=== PATIENT | male | born 2000 | race Caucasian/White ===

== ENCOUNTER 2021-06-28 10:26 | Emergency (ER) | payer OTHER ==
[2021-06-28] MEDS: Ketorolac 60 MG/2 ML SDV IM ONE (10:53)
[2021-06-28] MEDS: Ketorolac 60 MG/2 ML SDV ONE (10:54)
[2021-06-28] MEDS ORDERED: Ketorolac 10 MG Tab ONE (11:00)
[2021-06-28] MEDS ORDERED: traMADol 50 MG Tab ONE (11:00)
--- NOTE | 2021-06-28 11:25 | EDM.PDOC ---
ED HPI GENERAL MEDICAL PROBLEM - General Chief Complaint: Gastrointestinal Problem Stated Complaint: 2 HERNIAS IN ABDOMEN Time Seen by Provider: 06/28/21 11:02 Source of Information: Reports: Patient History Limitations: Reports: No Limitations - History of Present Illness INITIAL COMMENTS - FREE TEXT/NARRATIVE: patient presented to the ER with a c/o umbilical pain. known chau-umbilical hernia - was diagnosed last week at OSH using a CT scan - also has a scheduled appointment to see the surgeon in 3 days. He was on Hydrocodone 10mg/Tylenol 325mg PO, reports he ran out of them and needs something different for pain. He admits that Ibuprofen helps more with pain. No nausea or emesis. Good PO intake, had a breakfast today. No changes in BMs. No fever or chills. Pain is not worse than before, and denies any skin changes. Onset: Gradual Duration: Day(s): (5) Location: Reports: Abdomen Severity: Mild Upper Abdomen Pain Score (Numeric/FACES): 7 - Related Data Allergies Allergy/AdvReac Type Severity Reaction Status Date / Time No Known Allergies Allergy Verified 06/28/21 10:43 Past Medical History Musculoskeletal History: Reports: Other (See Below) Other Musculoskeletal History: miniscus tear. - Past Surgical History HEENT Surgical History: Reports: Other (See Below) Other HEENT Surgeries/Procedures: wisdom teeth removal GI Surgical History: Reports: Hernia, Abdominal Social & Family History - Recreational Drug Use Recreational Drug Use: No ED ROS GENERAL - Review of Systems Review Of Systems: See Below Constitutional: Reports: No Symptoms HEENT: Reports: No Symptoms Respiratory: Reports: No Symptoms Cardiovascular: Reports: No Symptoms GI/Abdominal: Reports: Abdominal Pain. Denies: Constipation, Distension, Nausea, Vomiting Musculoskeletal: Reports: No Symptoms Neurological: Reports: No Symptoms Psychiatric: Reports: No Symptoms ED EXAM, GI/ABD - Physical Exam Exam: See Below Exam Limited By: No Limitations General Appearance: Alert, WD/WN, No Apparent Distress Respiratory/Chest: No Respiratory Distress Cardiovascular: Normal Peripheral Pulses GI/Abdominal Exam: Soft, No Organomegaly, No Distention, Tender (mild tenderness over the umbilical hernia area - couldn't do any hernia reduction manually. no skin changes surrounding the area) Course - Vital Signs Last Recorded V/S: Last Vital Signs Temp 37.1 C 09/25/21 10:44 Pulse 65 06/28/21 10:44 Resp 18 06/28/21 10:44 BP 128/85 06/28/21 10:44 Pulse Ox 99 06/28/21 10:44 - Orders/Labs/Meds Orders: Active Orders 24 hr Category Date Time Status Lidocaine 5% Med 06/28/21 11:28 Once 5 gm TOP ONETIME ONE Meds: Medications Discontinued Medications Generic Name Dose Route Start Last Admin Trade Name Gianni PRN Reason Stop Dose Admin Ketorolac Tromethamine 60 mg 06/28/21 10:50 06/28/21 10:53 Ketorolac 60 Mg/2 Ml Sdv IM 06/28/21 10:51 60 mg ONETIME ONE Administration Ketorolac Tromethamine Confirm 06/28/21 11:02 06/28/21 10:54 Ketorolac 60 Mg/2 Ml Sdv Administered 06/28/21 11:03 Not Given Dose 60 mg .ROUTE .STK-MED ONE - Re-Assessments/Exams Free Text/Narrative Re-Assessment/Exam: vitals WNL Im Toradol was given - reports his pain has went down. will be d/cd home on Tramadol and Toradol PO. Lidocaine patch was applied over his hernia area. Departure - Departure Time of Disposition: 11:34 Disposition: Home, Self-Care 01 Condition: Good Clinical Impression: Abdominal pain, Umbilical hernia without obstruction and without gangrene - Discharge Information *PRESCRIPTION DRUG MONITORING PROGRAM REVIEWED*: Not Applicable *COPY OF PRESCRIPTION DRUG MONITORING REPORT IN PATIENT BEN: Not Applicable Instructions: Umbilical Hernia, Adult Referrals: PCP,None [Primary Care Provider] - Forms: ED Department Discharge Sepsis Event Note (ED) - Evaluation Sepsis Screening Result: No Definite Risk - Focused Exam Vital Signs: Vital Signs Temp Pulse Resp BP Pulse Ox 06/28/21 10:44 37.1 C 65 18 128/85 99 - Problem List & Annotations (1) Umbilical hernia without obstruction and without gangrene SNOMED Code(s): 664320340 Code(s): K42.9 - UMBILICAL HERNIA WITHOUT OBSTRUCTION OR GANGRENE Status: Acute Priority: Low Current Visit: Yes - Problem List Review Problem List Initiated/Reviewed/Updated: Yes - My Orders Last 24 Hours: My Active Orders 06/28/21 11:28 Lidocaine 5% 5 gm TOP ONETIME ONE - Assessment/Plan Last 24 Hours: My Active Orders 06/28/21 11:28 Lidocaine 5% 5 gm TOP ONETIME ONE Plan: - continue with current pain medications - follow up with your surgeon per the appointment - ok to apply warm packs on the affected area to help with discomfort - avoid lifting any heavy objects - return to the ER if pain got worse, fever, nausea, emesis or no bowel movements.
[2021-06-28] MEDS: Lidocaine 5% Oint 35.44 GM Tube TOP ONE (11:40)
[2021-06-28] MEDS: Lidocaine 5% 700 MG Patch ONE (11:49)
== END 2021-06-28 11:45 | disposition home or self-care (01) ==
LOC: LB.ED 10:26
DX: K42.9 Umbilical hernia without obstruction or gangrene (principal); Z98.890 Other specified postprocedural states
CPT/HCPCS: 96372; 99283; A9270-GY; J1885

== ENCOUNTER 2021-07-01 11:02 | Emergency (ER) | payer OTHER ==
[2021-07-01] MEDS ORDERED: Sodium Chloride 0.9% 10 ML Syringe FLUSH PRN (11:36)
[2021-07-01] MEDS ORDERED: Ondansetron 4 MG Tab.DIS PO ONE (11:41)
--- NOTE | 2021-07-01 11:42 | EDM.PDOC ---
ED HPI GENERAL MEDICAL PROBLEM - General Chief Complaint: Abdominal Pain Stated Complaint: ABDOMINAL PAIN Time Seen by Provider: 07/01/21 11:20 Source of Information: Reports: Patient History Limitations: Reports: No Limitations - History of Present Illness INITIAL COMMENTS - FREE TEXT/NARRATIVE: patient presented to the ER with a c/o abdominal pain. he reports a h/o umbilical hernia - found at OSH - denies nausea/emesis or diarrhea, but reports slight blood in the stool twice within the last week. Good appetite. he is supposed to see the surgeon today - but insurance didn't approve this yet and might get rescheduled for another 2 weeks. no fever or chills. no h/o IBD in the family. Denies any NSAID update. Abdomen Pain Score (Numeric/FACES): 7 - Related Data Allergies Allergy/AdvReac Type Severity Reaction Status Date / Time No Known Allergies Allergy Verified 07/01/21 11:24 Home Meds: Home Meds metroNIDAZOLE [Flagyl] 500 mg PO Q8H #20 tab 07/01/21 [Rx] Past Medical History Musculoskeletal History: Reports: Other (See Below) Other Musculoskeletal History: miniscus tear. - Past Surgical History HEENT Surgical History: Reports: Other (See Below) Other HEENT Surgeries/Procedures: wisdom teeth removal GI Surgical History: Reports: Hernia, Abdominal ED ROS GENERAL - Review of Systems Review Of Systems: See Below Constitutional: Reports: No Symptoms HEENT: Reports: No Symptoms Respiratory: Reports: No Symptoms Cardiovascular: Reports: No Symptoms GI/Abdominal: Reports: Abdominal Pain : Reports: No Symptoms Musculoskeletal: Reports: No Symptoms Neurological: Reports: No Symptoms Psychiatric: Reports: No Symptoms ED EXAM, GI/ABD - Physical Exam Exam: See Below Exam Limited By: No Limitations General Appearance: Alert, WD/WN, No Apparent Distress Eyes: Bilateral: EOMI Head: Atraumatic Neck: Normal Inspection Respiratory/Chest: No Respiratory Distress Cardiovascular: Normal Peripheral Pulses, Regular Rate, Rhythm, No Edema GI/Abdominal Exam: Soft, No Distention, Tender (mild and diffuse) Back Exam: Normal Inspection Extremities: Normal Inspection Neurological: Alert, Oriented Psychiatric: Normal Affect Course - Vital Signs Last Recorded V/S: Last Vital Signs Temp 36.8 C 07/01/21 11:30 Pulse 58 L 07/01/21 11:30 Resp 18 07/01/21 11:30 BP 122/86 07/01/21 11:30 Pulse Ox 99 07/01/21 11:30 - Orders/Labs/Meds Orders: Active Orders 24 hr Category Date Time Status Abdomen Pelvis w Cont [CT] Stat Exams 07/01/21 11:41 Taken Diatrizoate Katia/Diatrizoate Na [Gastrografin 37%] Med 07/01/21 12:00 Active 30 ml PO ASDIRECTED Iopamidol [Isovue-300 (61%)] Med 07/01/21 12:00 Active 100 ml IV ASDIRECTED Sodium Chloride 0.9% [Saline Flush] Med 07/01/21 11:36 Active 10 ml FLUSH ASDIRECTED PRN Saline Lock Insert [OM.PC] Routine Oth 07/01/21 11:36 Ordered Medication Orders Diatrizoate Meglum/Diatrizoate Sod (Diatrizoate Meglumine/Diatrizoate Sodium 37% 30 Ml Bottle) 30 ml PO ASDIRECTED KELSEY Stop: 07/01/21 23:59 Last Admin: 07/01/21 12:44 Dose: 30 ml Documented by: CADENCE Iopamidol (Iopamidol 612 Mg/Ml 100 Ml Bottle) 100 ml IV ASDIRECTED KELSEY Stop: 07/01/21 23:59 Last Admin: 07/01/21 12:44 Dose: 100 ml Documented by: CADENCE Sodium Chloride (Sodium Chloride 0.9% 10 Ml Syringe) 10 ml FLUSH ASDIRECTED PRN PRN Reason: Keep Vein Open Stop: 07/01/21 23:59 Labs: Laboratory Tests 07/01/21 07/01/21 07/01/21 Range/Units 11:36 11:36 11:36 WBC 5.4 (4.0-11.0) K/uL RBC 4.73 (4.50-6.50) M/uL Hgb 14.1 (13.0-18.0) g/dL Hct 42.0 (40.0-54.0) % MCV 89 (76-96) fL MCH 29.8 (27.0-32.0) pg MCHC 33.6 (31.0-35.0) g/dL RDW 12.5 (11.0-16.0) % Plt Count 154 (150-400) K/uL MPV 11.7 H (6.0-10.0) fL Neut % (Auto) 56.3 (45.0-70.0) % Lymph % (Auto) 30.7 (20.0-40.0) % Morrill % (Auto) 10.5 H (3.0-10.0) % Eos % (Auto) 2.1 (1.0-5.0) % Baso % (Auto) 0.4 (0.0-0.5) % Neut # (Auto) 3.02 (2.00-7.50) K/uL Lymph # (Auto) 1.64 (1.50-4.00) K/uL Morrill # (Auto) 0.56 (0.20-0.80) K/uL Eos # (Auto) 0.11 (0.04-0.40) K/uL Baso # (Auto) 0.02 (0.02-0.10) K/uL Sodium 140 (136-145) mmol/L Potassium 3.8 (3.5-5.1) mmol/L Chloride 106 (98-107) mmol/L Carbon Dioxide 29.6 (21.0-32.0) mmol/L Anion Gap 8.2 (5.0-15.0) mmol/L BUN 13 (8-26) mg/dL Creatinine 1.03 (0.70-1.30) mg/dL Est Cr Clr Drug Dosing 111.87 mL/min Estimated GFR (MDRD) > 60 (>60) MLS/MIN BUN/Creatinine Ratio 12.6 (6-25) Glucose 89 (74-100) mg/dL Lactic Acid 1.7 (0.4-2.0) mmol/L Calcium 9.4 (8.5-10.1) mg/dL Total Bilirubin 0.3 (0.0-1.0) mg/dL AST 6 L (15-37) U/L ALT 23 (12-78) U/L Alkaline Phosphatase 80 (46-116) U/L C-Reactive Protein (0.0-3.0) mg/L Total Protein 7.1 (6.4-8.2) g/dL Albumin 4.0 (3.4-5.0) g/dL Globulin 3.1 (2.2-4.2) g/dL Albumin/Globulin Ratio 1.3 (0.8-2.0) Urine Color Urine Appearance (CLEAR) Urine pH (5.0-8.0) Ur Specific Benkelman (1.003-1.030) Urine Protein (NEGATIVE) mg/dL Urine Glucose (UA) (NEGATIVE) mg/dL Urine Ketones (NEGATIVE) mg/dL Urine Occult Blood (NEGATIVE) Urine Nitrite (NEGATIVE) Urine Bilirubin (NEGATIVE) Urine Urobilinogen (0.2-1.0) E.U./dL Ur Leukocyte Esterase (NEGATIVE) 07/01/21 07/01/21 Range/Units 11:36 13:15 WBC (4.0-11.0) K/uL RBC (4.50-6.50) M/uL Hgb (13.0-18.0) g/dL Hct (40.0-54.0) % MCV (76-96) fL MCH (27.0-32.0) pg MCHC (31.0-35.0) g/dL RDW (11.0-16.0) % Plt Count (150-400) K/uL MPV (6.0-10.0) fL Neut % (Auto) (45.0-70.0) % Lymph % (Auto) (20.0-40.0) % Morrill % (Auto) (3.0-10.0) % Eos % (Auto) (1.0-5.0) % Baso % (Auto) (0.0-0.5) % Neut # (Auto) (2.00-7.50) K/uL Lymph # (Auto) (1.50-4.00) K/uL Morrill # (Auto) (0.20-0.80) K/uL Eos # (Auto) (0.04-0.40) K/uL Baso # (Auto) (0.02-0.10) K/uL Sodium (136-145) mmol/L Potassium (3.5-5.1) mmol/L Chloride (98-107) mmol/L Carbon Dioxide (21.0-32.0) mmol/L Anion Gap (5.0-15.0) mmol/L BUN (8-26) mg/dL Creatinine (0.70-1.30) mg/dL Est Cr Clr Drug Dosing mL/min Estimated GFR (MDRD) (>60) MLS/MIN BUN/Creatinine Ratio (6-25) Glucose (74-100) mg/dL Lactic Acid (0.4-2.0) mmol/L Calcium (8.5-10.1) mg/dL Total Bilirubin (0.0-1.0) mg/dL AST (15-37) U/L ALT (12-78) U/L Alkaline Phosphatase (46-116) U/L C-Reactive Protein < 0.5 (0.0-3.0) mg/L Total Protein (6.4-8.2) g/dL Albumin (3.4-5.0) g/dL Globulin (2.2-4.2) g/dL Albumin/Globulin Ratio (0.8-2.0) Urine Color Yellow Urine Appearance Clear (CLEAR) Urine pH 6.0 (5.0-8.0) Ur Specific Benkelman 1.015 (1.003-1.030) Urine Protein Negative (NEGATIVE) mg/dL Urine Glucose (UA) Negative (NEGATIVE) mg/dL Urine Ketones Negative (NEGATIVE) mg/dL Urine Occult Blood Negative (NEGATIVE) Urine Nitrite Negative (NEGATIVE) Urine Bilirubin Negative (NEGATIVE) Urine Urobilinogen 0.2 (0.2-1.0) E.U./dL Ur Leukocyte Esterase Negative (NEGATIVE) Meds: Medications Generic Name Dose Route Start Last Admin Trade Name Freq PRN Reason Stop Dose Admin Diatrizoate Meglum/Diatrizoate Sod 30 ml 07/01/21 12:00 07/01/21 12:44 Diatrizoate Meglumine/Diatrizoate Sodium 37% 30 Ml Bottle PO 07/01/21 23:59 30 ml ASDIRECTED KELSEY Administration Iopamidol 100 ml 07/01/21 12:00 07/01/21 12:44 Iopamidol 612 Mg/Ml 100 Ml Bottle IV 07/01/21 23:59 100 ml ASDIRECTED KELSEY Administration Sodium Chloride 10 ml 07/01/21 11:36 Sodium Chloride 0.9% 10 Ml Syringe FLUSH 07/01/21 23:59 ASDIRECTED PRN Keep Vein Open Discontinued Medications Generic Name Dose Route Start Last Admin Trade Name Freq PRN Reason Stop Dose Admin Al Hydroxide/Mg Hydroxide 30 ml 07/01/21 13:17 09/28/21 13:33 Gi Cocktail Oral Solution 30 Ml PO 07/01/21 13:18 30 ml ONETIME ONE Administration Metronidazole 500 mg 07/01/21 14:01 Metronidazole 500 Mg Tab PO 07/01/21 14:02 ONETIME ONE Morphine Sulfate 4 mg 07/01/21 11:36 07/01/21 12:55 Morphine 4 Mg/Ml Vial IVPUSH 07/01/21 11:37 2 mg ONETIME ONE Administration Morphine Sulfate Confirm 07/01/21 11:56 07/01/21 11:53 Morphine 4 Mg/Ml Vial Administered 07/01/21 11:57 Not Given Dose 4 mg .ROUTE .STK-MED ONE Ondansetron HCl 4 mg 07/01/21 11:41 07/01/21 11:46 Ondansetron 4 Mg Tab.Dis PO 07/01/21 11:42 4 mg ONETIME ONE Administration Ondansetron HCl Confirm 07/01/21 11:56 07/01/21 11:54 Ondansetron 4 Mg Tab.Dis Administered 07/01/21 11:57 Not Given Dose 4 mg .ROUTE .STK-MED ONE Sodium Chloride 50 ml 07/01/21 11:56 07/01/21 12:44 Sodium Chloride 0.9% 50 Ml Sdv FLUSH 07/01/21 11:57 50 ml ONETIME ONE Administration - Re-Assessments/Exams Free Text/Narrative Re-Assessment/Exam: vitals WNL. labs - no leukocytosis, normal CMP and lactate. Also normal UA. pain control with IV morphine. CT abd/pelv w PO/iv - no acute findings. no e/o hernia or SBO. GI cocktail was given - reports improvement. recommended to obtain an EGD as an outpatient Departure - Departure Time of Disposition: 14:07 Disposition: Home, Self-Care 01 Condition: Good Clinical Impression: Abdominal pain - Discharge Information *PRESCRIPTION DRUG MONITORING PROGRAM REVIEWED*: Not Applicable *COPY OF PRESCRIPTION DRUG MONITORING REPORT IN PATIENT BEN: Not Applicable Prescriptions: metroNIDAZOLE [Flagyl] 500 mg PO Q8H #20 tab Instructions: Abdominal Pain, Adult, [id number] Referrals: PCP,None [Primary Care Provider] - Forms: ED Department Discharge Additional Instructions: - take pain meds as prescribed - start taking antibiotics three times a day - follow up with your PCP in 3-7 days as needed - increase fluids intake - recommend to obtain an EGD and a colonoscopy as an outpatient Sepsis Event Note (ED) - Evaluation Sepsis Screening Result: No Definite Risk - Focused Exam Vital Signs: Vital Signs Temp Pulse Resp BP Pulse Ox 07/01/21 11:30 36.8 C 58 L 18 122/86 99 - Problem List & Annotations (1) Abdominal pain SNOMED Code(s): 47906442 Code(s): R10.9 - UNSPECIFIED ABDOMINAL PAIN Status: Acute Priority: Low Current Visit: Yes - Problem List Review Problem List Initiated/Reviewed/Updated: Yes - My Orders Last 24 Hours: My Active Orders 07/01/21 11:36 Sodium Chloride 0.9% [Saline Flush] 10 ml FLUSH ASDIRECTED PRN Saline Lock Insert [OM.PC] Routine 07/01/21 11:41 Abdomen Pelvis w Cont [CT] Stat 07/01/21 12:00 Diatrizoate Katia/Diatrizoate Na [Gastrografin 37%] 30 ml PO ASDIRECTED Iopamidol [Isovue-300 (61%)] 100 ml IV ASDIRECTED - Assessment/Plan Last 24 Hours: My Active Orders 07/01/21 11:36 Sodium Chloride 0.9% [Saline Flush] 10 ml FLUSH ASDIRECTED PRN Saline Lock Insert [OM.PC] Routine 07/01/21 11:41 Abdomen Pelvis w Cont [CT] Stat 07/01/21 12:00 Diatrizoate Katia/Diatrizoate Na [Gastrografin 37%] 30 ml PO ASDIRECTED Iopamidol [Isovue-300 (61%)] 100 ml IV ASDIRECTED Plan: - take pain meds as prescribed - start taking antibiotics three times a day - follow up with your PCP in 3-7 days as needed - increase fluids intake
[2021-07-01] MEDS: Morphine 4 MG/ML VIAL IVPUSH ONE ×2 (11:47→12:55)
[2021-07-01] MEDS ORDERED: Morphine 4 MG/ML VIAL ONE (11:56)
[2021-07-01] MEDS ORDERED: Ondansetron 4 MG Tab.DIS ONE (11:56)
[2021-07-01] MEDS ORDERED: Sodium Chloride 0.9% 50 ML SDV FLUSH ONE (11:56)
[2021-07-01] MEDS ORDERED: Diatrizoate Meglumine/Diatrizoate Sodium 37% 30 ML Bottle PO SCH (12:00)
[2021-07-01] MEDS ORDERED: Iopamidol 612 MG/ML 100 ML Bottle IV SCH (12:00)
[2021-07-01] MEDS ORDERED: GI Cocktail Oral Solution 30 ML PO ONE (13:17)
[2021-07-01] MEDS ORDERED: metroNIDAZOLE 500 MG Tab PO ONE (14:01)
--- NOTE | 2021-07-02 08:53 | CT ---
Date of Service: 07/01/21 Clinical Data: chau-umbilical pain ENHANCED ABDOMEN AND PELVIC CT: Multislice axial acquisition with IV and oral contrast was performed. Comparison is made to a prior exam dated 06/24/21. The lung bases are clear. The liver is normal size with homogeneous attenuation. No focal hepatic lesions. The gallbladder appears normal. No biliary duct dilatation. The spleen appears normal. The pancreas appears normal. The right and left adrenals appear normal. The right and left kidneys enhance symmetrically. There is a subcentimeter low- density lesion in the left renal cortex which is most likely a small cyst. The kidneys otherwise appear normal. No hydronephrosis or hydroureter. The bladder is fluid filled. It appears normal. The appendix is not clearly identified. No evidence of appendicitis. There is a moderate amount of stool present throughout the colon. No free air. No free fluid. No dilated loops of bowel. No adenopathy. No aortic aneurysm or dissection. No other significant findings. [id number] [facility]
== END 2021-07-01 14:30 | disposition home or self-care (01) ==
LOC: LB.ED 11:02
DX: R10.9 Unspecified abdominal pain (principal)
CPT/HCPCS: 36415; 74177; 80053; 81003; 83605; 85025; 86140; 96374; 96376; 99284-25; A9270-GY; J2270; Q9963; Q9967